=== PATIENT | male | born 1995 | race Native Hawaiian/Other Pacific Islander ===

== ENCOUNTER → 2020-10-10 17:59 | Outpatient (CLI) | payer OTHER, SELFPAY ==
--- NOTE | 2020-10-10 18:00 | DI.RAD.S_ITS ---
PROCEDURE: XR HAND RT MIN 3V INDICATIONS: r hand pain TECHNIQUE: 3 views of the hand(s) acquired. COMPARISON: CR, WRIST MINIMUM 3 VIEWS RIGHT, 06/23/2008, 13:59. FINDINGS: Bones: No fractures or dislocations. Carpal bones are normally aligned. No suspicious bony lesions. Soft tissues: No suspicious soft tissue calcifications. IMPRESSION: No visualized acute fracture or dislocation. However, if clinical concern and/or pain persist, short interval imaging followup in 7-10 days is recommended, as occult injury cannot be definitively excluded. Dictated by: Lily Medina M.D. on 10/10/2020 at 17:25 Approved by: Lily Medina M.D. on 10/10/2020 at 17:29
== END ==
PROVIDERS: PCP Family Medicine; Referring Provider Physician Assistant; Visit Provider Physician Assistant
DX: M79.643 Pain in unspecified hand (principal)
CPT/HCPCS: 73130

== ENCOUNTER → 2022-01-31 08:54 | Outpatient (CLI) | payer SELFPAY ==
[2022-01-31 09:51] LABS: Add Manual Diff / Slide Review NO; Basophils Absolute Auto 100 /uL (0-100); Basophils Percent Auto 1.4 % (0-2); Eosinophils Absolute Auto 200 /uL (0-450); Eosinophils Percent Auto 4.4 % (2-4); Hematocrit 39.4 % (41-53); Hemoglobin 13.5 g/dL (13.5-17.5); Lymphocytes Absolute Auto 1400 /uL (1100-4500); Lymphocytes Percent Auto 36.1 % (25-40); Mean Corpuscular HGB Conc 34.3 % (30-36); Mean Corpuscular Hemoglobin 31.4 PG (26-34); Mean Corpuscular Volume 91.6 fL (80-100); Monocytes Absolute Auto 400 /uL (0-900); Monocytes Percent Auto 9.4 % (3-14); Neutrophils Absolute Auto 1900 /uL (1500-7000); Neutrophils Percent Auto 48.7 % (50-75); Platelet Count 288 X10^3/uL (150-400); Red Cell Distribution Width 12.7 % (11.6-14.8)
[2022-01-31 12:14] LABS: Alanine Aminotransferase 17 IU/L (<50); Aspartate Aminotransferase 27 IU/L (17-59); BUN Creatinine Ratio 16.3 (6-22); Bilirubin Total 0.9 mg/dL (0.2-1.3); Blood Urea Nitrogen 17 mg/dL (9-20); Calcium 9.2 mg/dL (8.4-10.2); Carbon Dioxide 28 mmol/L (22-32); Chloride 103 mmol/L (98-107); Estimated Glomerular Filt Rate > 60 mL/min (>60); Glucose 95 mg/dL (70-100); Potassium 4.9 mmol/L (3.4-5.1); Sodium 138 mmol/L (137-145)
[2022-01-31 12:15] LABS: Albumin 4.3 g/dL (3.5-5.0); Albumin Globulin Ratio 1.4 (1.0-2.8); Alkaline Phosphatase 46 U/L (38-126); Globulin 3.1 g/dL (1.7-4.1); HEMOLYSIS < 15 (0-50); Total Protein 7.4 g/dL (6.3-8.2)
[2022-02-03 16:17] LABS: HIV 1 & 2 Ab/Ag 4th Gen Combo NEGATIVE (NEGATIVE)
== END ==
PROVIDERS: PCP Family Medicine; Referring Provider Family Medicine; Visit Provider Family Medicine
DX: Z02.5 Encounter for examination for participation in sport (principal)
CPT/HCPCS: 36415; 80053; 85025; 87389

== ENCOUNTER 2022-05-30 15:47 | Emergency (ER) | payer SELFPAY ==
[2022-05-30 16:02] VITALS: BP 153/72; PULSE 66; RESP 16; TEMP 36.7; O2SAT 100; BMI 21.4
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
[2022-05-30] MEDS: HYDROMORPHONE 1 MG INJ IM (17:01)
[2022-05-30] MEDS: LIDOCAINE 4% SOLN 50 ML 20 ML TOP (17:20)
[2022-05-30 18:02] VITALS: BP 144/73; PULSE 65; RESP 16; O2SAT 98
== END 2022-05-30 18:04 | disposition home or self-care (01) ==
PROVIDERS: Emergency Provider Emergency Medicine; PCP Family Medicine
DX: S02.2XXA Fracture of nasal bones, initial encounter for closed fracture (principal); W50.0XXA Accidental hit or strike by another person, initial encounter; Y93.71 Activity, boxing
CPT/HCPCS: 96372; 99283; J1170